=== PATIENT | male | born 1955 | race Caucasian/White ===

== ENCOUNTER 2018-01-13 00:35 | Emergency (ER) | payer MEDICARE ==
[2018-01-13 00:45] VITALS: BP 121/80; PULSE 73; RESP 18; TEMP 97.8
[2018-01-13] MEDS ORDERED: DIPH,PERTUS(ACELL)TETVAC-LF 0.5 ML VIAL IM ONE (00:53)
[2018-01-13] MEDS ORDERED: LIDOCAINE 1% INJ 10MG/ML (20 ML MDV) SQ ONE (00:53)
--- NOTE | 2018-01-13 01:17 | ED ---
General Adult HPI - General Chief complaint: Extremity Injury, Lower Stated complaint: Fish hook in hand Time Seen by Provider: 01/13/18 00:46 Source: patient Mode of arrival: ambulatory Limitations: no limitations - History of Present Illness Initial comments: 62-year-old male patient presents to the emergency department today for evaluation of fishhook to the palmar aspect of the left hand. Patient states that the fishhook out in approximately 30 minutes prior to arrival. States he did try to push it through and taken out however he was unable to get the barbie to push through the skin. Patient is unsure when his last tetanus vaccine was given. Patient states he does take Plavix but has not had any significant bleeding. He denies any other injuries. Denies any other physical concerns. - Related Data Allergies Allergy/AdvReac Type Severity Reaction Status Date / Time latex Allergy Rash/Hives Verified 01/13/18 00:45 Review of Systems ROS Statement: Those systems with pertinent positive or pertinent negative responses have been documented in the HPI. ROS Other: All systems not noted in ROS Statement are negative. Past Medical History Past Medical History: Myocardial Infarction (CT) History of Any Multi-Drug Resistant Organisms: None Reported Past Surgical History: Heart Catheterization With Stent Past Psychological History: No Psychological Hx Reported Smoking Status: Never smoker Past Alcohol Use History: Occasional Past Drug Use History: None Reported General Exam Limitations: no limitations General appearance: alert, in no apparent distress, other (This is a well- developed, well-nourished adult male patient in no acute distress. Vital signs upon presentation are temperature 97.8F, pulse 73, respirations 18, blood pressure 121/80, pulse ox 98% on room air.) Respiratory exam: Present: normal lung sounds bilaterally. Absent: respiratory distress, wheezes, rales, rhonchi, stridor Cardiovascular Exam: Present: regular rate, normal rhythm, normal heart sounds. Absent: systolic murmur, diastolic murmur, rubs, gallop, clicks Extremities exam: Present: full ROM, normal capillary refill, other (Patient has a foot that is attached a fishing lure to the thenar eminence of the left hand. No significant bleeding. Skin to the remainder of the hand is pink, warm , and dry. Cap refills less than 3 seconds. Radial pulses 2+ and equal bilaterally.). Absent: normal inspection, tenderness, pedal edema, joint swelling, calf tenderness Neurological exam: Present: alert, oriented X3, CN II-XII intact Psychiatric exam: Present: normal affect, normal mood Skin exam: Present: warm, dry, intact, normal color. Absent: rash Course Vital Signs 01/13/18 00:42 Temperature 97.8 F Pulse Rate 73 Respiratory 18 Rate Blood Pressure 121/80 O2 Sat by Pulse 98 Oximetry Procedures - Procedures Initial comment: Verbal consent to remove fishhook from left hand. Area was anesthetized using local infiltration of 1% lidocaine. Approximately 3 mL was used. I did have to make a tiny puncture in the skin with an 11 blade scalpel. I pushed the application support technician through, attached hemostats to the barbie end. I clipped the hook from the lower using wire cutters. Pulled the hook through and out of skin. Pressure was held to stop bleeding. Patient tolerated procedure well with no complications. Area was cleansed. Bacitracin applied. Band-Aid applied. Medical Decision Making - Medical Decision Making 62-year-old male patient presented to the emergency department today for evaluation of a fishhook to the left hand. [place] was located in the thenar eminence of the palmar aspect of the left hand. [place] was removed as documented. Patient tolerated the procedure well. He was educated regarding wound care. Instructed to monitor for signs or symptoms of infection and educated regarding such. He is instructed to follow up with his primary care physician for recheck in 1-2 days. Return parameters discussed in detail. He verbalizes understanding and agrees with this plan. Disposition Clinical Impression: Fish hook injury of hand Disposition: HOME SELF-CARE Condition: Good Instructions: Soft Tissue Foreign Body (ED) Additional Instructions: Keep wound clean and dry. Old pressure of one third to bleed. Follow-up with your primary care physician for recheck in 1-2 days. Return here immediately for any new, worsening, or concerning symptoms. Is patient prescribed a controlled substance at d/c from ED?: No Referrals: Fady Rick MD [Primary Care Provider] - 1-2 days Time of Disposition: 01:17
== END 2018-01-13 01:31 | disposition home or self-care (01) ==
LOC: SUPCPDRO 00:35 → EC 00:35
DX: S60.552A Superficial foreign body of left hand, initial encounter (principal); I25.2 Old myocardial infarction; Z79.02 Long term (current) use of antithrombotics/antiplatelets; Z91.040 Latex allergy status; Z23 Encounter for immunization; W45.8XXA Other foreign body or object entering through skin, initial encounter
CPT/HCPCS: 99283; 10120; 90471; 90715; J2001

== ENCOUNTER 2018-11-02 20:21 | Emergency (ER) | payer MEDICARE ==
[2018-11-02] MEDS ORDERED: DIPH,PERTUS(ACELL)TETVAC-LF 0.5 ML VIAL IM ONE (20:51)
[2018-11-02] MEDS ORDERED: LIDOCAINE 1% INJ 10MG/ML (20 ML MDV) SQ ONE (20:51)
[2018-11-02 20:53] VITALS: BP 140/87; PULSE 68; RESP 18; TEMP 98.6
--- NOTE | 2018-11-02 21:24 | ED ---
General Adult HPI - General Chief complaint: Skin/Abscess/Foreign Body Stated complaint: FISHHOOK IN RT THUMB Time Seen by Provider: 11/02/18 20:51 Source: patient, RN notes reviewed Mode of arrival: ambulatory Limitations: no limitations - History of Present Illness Initial comments: 63-year-old male presents to the emergency department for a chief complaint of fishhook in right thumb. States this just occurred. States this has not been used on fish before. No difficulty moving the right thumb. Patient is up-to-date on tetanus.Patient has no other complaints at this time including shortness of breath, chest pain, abdominal pain, nausea or vomiting, headache, or visual changes. - Related Data Previous Rx's Medication Instructions Recorded Cephalexin [Keflex] 500 mg PO Q6HR 3 Days #12 cap 11/02/18 Allergies Allergy/AdvReac Type Severity Reaction Status Date / Time latex Allergy Rash/Hives Verified 01/13/18 00:45 Review of Systems ROS Statement: Those systems with pertinent positive or pertinent negative responses have been documented in the HPI. ROS Other: All systems not noted in ROS Statement are negative. Past Medical History Past Medical History: Myocardial Infarction (ND) History of Any Multi-Drug Resistant Organisms: None Reported Past Surgical History: Heart Catheterization With Stent Past Psychological History: No Psychological Hx Reported Smoking Status: Never smoker Past Alcohol Use History: Occasional Past Drug Use History: None Reported General Exam Limitations: no limitations General appearance: alert, in no apparent distress Head exam: Present: atraumatic, normocephalic, normal inspection Eye exam: Present: normal appearance, PERRL, EOMI. Absent: scleral icterus, conjunctival injection, periorbital swelling ENT exam: Present: normal exam, mucous membranes moist Neck exam: Present: normal inspection, full ROM. Absent: tenderness, meningismus, lymphadenopathy Respiratory exam: Present: normal lung sounds bilaterally. Absent: respiratory distress, wheezes, rales, rhonchi, stridor Cardiovascular Exam: Present: regular rate, normal rhythm, normal heart sounds. Absent: systolic murmur, diastolic murmur, rubs, gallop, clicks Extremities exam: Present: full ROM (Full range of motion of right thumb), normal capillary refill (Capillary refill less than 2 seconds, radial pulse 2+ in the right upper extremity), other (Three-pronged fish hook stuck in the finger pad of the right thumb. One prong is stuck the other 2 are free.) Neurological exam: Present: alert, oriented X3, CN II-XII intact Psychiatric exam: Present: normal affect, normal mood Course Vital Signs 11/02/18 20:37 Temperature 98.6 F Pulse Rate 68 Respiratory 18 Rate Blood Pressure 140/87 O2 Sat by Pulse 97 Oximetry Medical Decision Making - Medical Decision Making 63-year-old male presents for fishhook in right thumb. This has never been used in a fish before. Area was cleaned and anesthetized with 1% lidocaine using a local anesthetic approach. [place] was then advanced through the skin and the barbie was removed with wire cutters. It was then reversed and dislodged from the finger. No difficulty in doing this. Patient will be given Keflex to prevent infection. Will return here if he has any worsening symptoms. Disposition Clinical Impression: [place] injury to finger Disposition: HOME SELF-CARE Condition: Good Instructions (If sedation given, give patient instructions): Laceration (ED) Additional Instructions: Monitor for any signs of infections such as drainage, spreading or streaking redness, or fever. If these occur then return immediately to the emergency department. Otherwise follow-up with primary care in 1-2 days. Prescriptions: Cephalexin [Keflex] 500 mg PO Q6HR 3 Days #12 cap Is patient prescribed a controlled substance at d/c from ED?: No Referrals: Fady Rick MD [Primary Care Provider] - 1-2 days Time of Disposition: 21:23
== END 2018-11-02 21:30 | disposition home or self-care (01) ==
LOC: EC 20:21
DX: S60.351A Superficial foreign body of right thumb, initial encounter (principal); I25.2 Old myocardial infarction; Z53.29 Procedure and treatment not carried out because of patient's decision for other reasons; Z91.040 Latex allergy status; Z95.5 Presence of coronary angioplasty implant and graft; W22.8XXA Striking against or struck by other objects, initial encounter; Y92.89 Other specified places as the place of occurrence of the external cause
CPT/HCPCS: 99282; 10120; J2001